=== PATIENT | male | born 1975 | race Caucasian/White ===

== ENCOUNTER 2024-09-19 11:06 | Emergency (ER) | payer OTHER, SELFPAY ==
[2024-09-19 11:18] VITALS: BP 136/88; PULSE 56; RESP 16; TEMP 36.1; O2SAT 100
--- NOTE | 2024-09-19 12:13 | ED.SKABFB ---
HPI - Skin/Abscess/Foreign Bdy General Chief complaint: Skin/Abscess/Foreign Body Stated complaint: IV area sore and blotchy Time Seen by Provider: 09/19/24 12:00 Source: patient, RN notes reviewed and old records reviewed Mode of arrival: ambulatory Limitations: no limitations History of Present Illness HPI narrative: 48 year old male presents to [facility] with complaints of soreness to his left antecubital and left inner forearm from previous IV site from the of this month. Patient states that he had [place] with cardiac stent placed on Ailyn gloria. Patient reports continued tenderness and some swelling is noted to the left inner proximal forearm near antecubital. Patient reports that he has applied ice to the area and heat to area and has taken some Tylenol for the discomfort. MD complaint: other (pain from previous IV site) Onset (ago): day(s) (6) Severity: moderate Pain Consistency: constant Exacerbating factors: palpation Treatments prior to arrival: other (heat and warmth to area and Tylenol) Related Data Home Medications ?Medication ?Instructions ?Recorded ?Confirmed ?Last Taken ?Type albuterol sulfate 90 mcg/actuation 1 - 2 inh inhalation QID PRN 07/20/19 07/20/19 Unknown History aerosol inhaler (ProAir HFA) Shortness Of Breath aspirin 81 mg tablet,delayed mg 09/19/24 Unknown History release atorvastatin 80 mg tablet mg 09/19/24 Unknown History metoprolol tartrate 25 mg tablet mg 09/19/24 Unknown History sacubitril 24 mg-valsartan 26 mg tablet 09/19/24 Unknown History tablet (Entresto) spironolactone 25 mg tablet mg 09/19/24 Unknown History ticagrelor 90 mg tablet (Brilinta) mg 09/19/24 Unknown History Allergies Allergy/AdvReac Type Severity Reaction Status Date / Time No Known Allergies Allergy Unverified 07/26/19 08:40 Review of Systems Review of Systems: CONSTITUTIONAL: Denies fever, chills, or sweats. CARDIOVASCULAR: Denies chest pain, palpitations, or edema. RESPIRATORY: Denies cough or dyspnea. GASTROINTESTINAL: Denies abdominal pain, nausea, vomiting SKIN: Reports redness and swelling of left inner aspect of left proximal forearm near antecubital which is tender with no acute warmth from previous IV site Denies purulent drainage, MUSCULOSKELETAL: Denies myalgia. NEUROLOGIC: Denies headache, numbness All systems reviewed & are unremarkable except as noted in HPI and below PMFSH Past Medical History Medical History Myocardial infarction August Frequent episodes of bronchitis Anxiety Surgical History Surgical History H/O heart artery stent S/P tendon repair left ankle History of thumb surgery x3 Hx of nasal septoplasty Social History Social History Smoking status: Never smoker Alcohol intake: current Alcohol use details: social Substance use type: does not use Living arrangements: with family Gender identity (if verbalized by the patient): Male Comments At time of signature, agree with nursing past medical, surgical, social and family history. There is no relevant family history pertinent to the presenting complaint Exam Narrative: GENERAL: Well-appearing, well-nourished, and in no acute distress. HEAD: Normocephalic, atraumatic. EYES: PERRLA and EOMI. ENT: Nares clear, no rhinorrhea or epistaxis. Mucous membranes moist. NECK: Supple.no lymphadenopathy CHEST: Clear to auscultation. No respiratory distress.SAO2 100% on room air HEART: Regular rate and rhythm. No murmur heard. Normal peripheral pulses. ABDOMEN: Soft, nontender, nondistended, normal active bowel sounds. EXTREMITIES: mild erythema, tenderness,no acute warmth to left inner proximal forearm near antecubital increased tenderness to palpation of area, no vesicles or drainage noted. NEURO: No focal deficits. Alert and oriented x3. Course Course Emergency Course: Patient is aware of diagnosis, understands and agrees to treatment plan. Anticipatory guidance given. Patient agrees to follow-up as directed and is aware of reasons to seek care at the emergency department. Portions of this record may have been created with voice recognition software Level of Care: Express Care Visit Vital Signs Vital signs: Vital Signs Temperature 36.1 C L 09/19/24 11:18 Pulse Rate 56 L 09/19/24 11:18 Respiratory Rate 16 09/19/24 11:18 Blood Pressure 136/88 09/19/24 11:18 Pulse Oximetry 100 09/19/24 11:18 Oxygen Delivery Room Air 09/19/24 11:18 Temperature 36.1 C L 09/19/24 11:18 Pulse Rate 56 L 09/19/24 11:18 Respiratory Rate 16 09/19/24 11:18 Blood Pressure 136/88 09/19/24 11:18 Pulse Oximetry 100 09/19/24 11:18 Oxygen Delivery Room Air 09/19/24 11:18 Reviewed MDM - Skin/Abscess/Foreign Bdy MDM Narrative Medical decision making narrative: Does not appear at this time to be erythema multiforme, bullous, SJS, TEN; no evidence at this time to suggest RMSF, endocarditis or Lyme disease; patient looks well, nontoxic and is tolerating oral intake; no neurologic signs or symptoms; no headache, photophobia or neck pain; afebrile; appropriate for initial outpatient treatment; discussed the importance of follow-up, patient agrees. Patient does not have history of penetrating trauma, laceration, blunt trauma, recent surgery, immunosuppression, malignancy, obesity, alcoholism, corticosteroid use. Question cellulitis, necrotizing soft tissue infection, abscess. Differential Diagnosis Differential diagnosis: Likely cellulitis and other (swelling and pain to previous IV site.) Medical Records Attestation: I reviewed the patient's medical records. Critical Care Time Critical Care Time Critical Care Time: No Discharge Plan Discharge Clinical Impression: Cellulitis of left forearm Patient Disposition: Home, Self-Care Condition: Stable Instructions: Antibiotic Form, Cellulitis (ED) Additional Instructions: Wash left forearm with liquid Dial soap twice daily apply mupirocin ointment watch for increasing infection--redness, swelling, drainage Tylenol for any fever pain follow up with PCP in 5 days for a wound check recheck if develop fever, chills, increasing symptom Go to the ER if your symptoms become worse of if ANY new symptoms develop If your symptoms persist, change or worsen significantly before you can contact your personal physician then please, without delay, go to the emergency department for further evaluation. Follow-up with PCP in 7-10 days or sooner if needed Follow up with PCP soon in regards to your blood pressure which is elevated above threshold for referral. Blood pressure above 120/80 may indicate pre-hypertension. 136/88 Please address your left arm discomfort and swelling with your physician today at your office appointment Patient Language: Yoruba Prescriptions: New cephalexin 500 mg capsule 500 mg PO Q8H Qty: 21 0RF mupirocin 2 % ointment 1 applic topical BID Qty: 22 0RF No Action atorvastatin 80 mg tablet aspirin 81 mg tablet,delayed release (DR/EC) spironolactone 25 mg tablet metoprolol tartrate 25 mg tablet Brilinta 90 mg tablet sacubitril-valsartan [Entresto] 24-26 mg tablet albuterol sulfate [ProAir HFA] 90 mcg/actuation Hfa Aerosol Inhaler 1 - 2 inh INHALATION QID PRN (Reason: Shortness Of Breath) hydrocodone-acetaminophen 7.5-300 mg tablet 1 tablet PO Q6H PRN (Reason: pain) Qty: 20 0RF Follow-up/Referrals: Kylie,Yomi Acevedo MD [Primary Care Provider] - Time of Disposition: 12:46 Quality [place] Coma Scale Eyes: Open Verbal: Oriented and Alert Motor: Follows Commands [place] Total Score: 15
== END 2024-09-19 12:50 | disposition home or self-care (01) ==
PROVIDERS: Emergency Provider Registered Nurse; PCP Internal Medicine
DX: L03.114 Cellulitis of left upper limb (principal); T80.29XA Infection following other infusion, transfusion and therapeutic injection, initial encounter; I25.2 Old myocardial infarction; Z95.5 Presence of coronary angioplasty implant and graft
CPT/HCPCS: 99213; G0463